=== PATIENT | male | born 1980 | race Two or more races ===

== ENCOUNTER 2024-12-05 21:48 | Emergency (ER) | payer OTHER ==
[~2024-12-05] VITALS: Ht 188 cm; Wt 86.2 kg
[2024-12-05 22:00] VITALS: BP 136/85; O2SAT 98
[2024-12-05] MEDS ORDERED: KETOROLAC TROMETHAMINE 30 MG VIAL IM STA (23:22)
[2024-12-06] MEDS ORDERED: KETOROLAC TROMETHAMINE 30 MG VIAL ONE (00:08)
== END 2024-12-06 00:22 | disposition home or self-care (01) ==
LOC: ER 22:43
DX: K11.20 Sialoadenitis, unspecified (principal)